=== PATIENT | female | born 2000 | race Hispanic/Latino ===

== ENCOUNTER 2020-05-21 16:57 | Inpatient (IN) | payer MEDICAID ==
[~2020-05-21] VITALS: Ht 157.5 cm; Wt 101.6 kg
[2020-05-21] MEDS ORDERED: LACTATED RINGERS 1000ML 1,000 ML IV PRN (17:42)
[2020-05-21] MEDS ORDERED: OXYTOCIN-LR 20 UNITS/1000 ML 1,000 ML IV SCH (17:45)
[2020-05-21 18:12] LABS: HEMATOCRIT 32.9 % (36-48); MEAN CORPUSCULAR HEMOGLOBIN 23.9 pg (27.0-33.0); MEAN CORPUSCULAR HGB CONC 31.6 g/dL (32.0-36.0); MEAN CORPUSCULAR VOLUME 75.5 fL (80-100); PLATELET COUNT (AUTO) 310 K/uL (130-400); RED BLOOD CELL COUNT(AUTO) 4.36 MIL/uL (4.00-5.50); WHITE BLOOD COUNT (AUTO) 11.8 K/uL (4.8-10.8)
[2020-05-21 18:18] LABS: APPEARANCE,URINE Clear (CLEAR); BILIRUBIN,URINE Negative (NEGATIVE); COLOR,URINE Yellow (YELLOW); GLUCOSE, URINE (UA) Negative (NEGATIVE); KETONES,URINE Negative (NEGATIVE); LEUKOCYTE ESTERASE ,URINE Trace (NEGATIVE); NITRATE,URINE Negative (NEGATIVE); OCCULT BLOOD,URINE Negative (NEGATIVE); PROTEIN,URINE Negative (NEGATIVE)
[2020-05-21 18:26] LABS: CREATININE 0.6 mg/dL (0.5-1.5); POTASSIUM 3.7 mmol/L (3.5-5.1)
[2020-05-21 18:27] LABS: INR 0.87 (0.85-1.15); PARTIAL THROMBOPLASTIN TIME 25.6 SEC (26.3-35.5); PROTHROMBIN TIME 9.4 SEC (9.6-11.6)
[2020-05-21 18:31] LABS: ALBUMIN 2.5 g/dL (3.5-5.0); BILIRUBIN,TOTAL 0.2 mg/dL (0.2-1.0); TOTAL PROTEIN, SERUM 7.2 g/dL (6.0-8.3); URIC ACID 3.8 mg/dL (2.6-7.2)
[2020-05-21 18:37] LABS: BACTERIA,URINE Moderate /HPF (None Seen); RBC,URINE 0-1 /HPF (0-1)
[2020-05-21 18:38] LABS: SQUAMOUS EPITHELIAL CELL,UR Few /HPF (0-2); TRANSITIONAL EPI CELLS,URINE Rare /HPF (None Seen)
[2020-05-21] MEDS ORDERED: DINOPROSTONE 10 MG VAGINAL SUPP VG SCH (19:00)
[2020-05-21 19:45] VITALS: BP 134/88
[2020-05-22] MEDS ORDERED: OXYTOCIN 10 USP UNITS/ML 20 UNIT in LACTATED RINGERS 1000ML 1,000 ML IV SCH (07:30)
[2020-05-22] MEDS ORDERED: CEFAZOLIN SODIUM 1 GM VIAL IVP PRN (08:30)
[2020-05-22] MEDS ORDERED: OXYTOCIN-LR 20 UNITS/1000 ML 1,000 ML IV SCH (08:30)
[2020-05-22] MEDS ORDERED: CALDOLOR 800MG+NS 250ML 250 ML IV PRN (08:30)
[2020-05-22] MEDS ORDERED: DEXAMETHASONE SOD PHOSPHATE 10MG/ML 1ML VIAL ONE (12:00)
[2020-05-22] MEDS ORDERED: ONDANSETRON HCL 4 MG/2 ML VIAL ONE (12:00)
[2020-05-22] MEDS ORDERED: EPHEDRINE SULFATE 50 MG/ML AMPULE ONE (12:00)
[2020-05-22] MEDS ORDERED: DURAMORPH PF1 MG/ML 10ML AMP IV ONE (12:00)
[2020-05-22] MEDS ORDERED: PHENYLEPHRINE HCL 10 MG/ML 1ML VIAL IV ONE (12:12)
[2020-05-22] MEDS ORDERED: PREN-196 PO (14:27)
[2020-05-22 14:30] VITALS: BP 127/68
[2020-05-22] MEDS ORDERED: CEFAZOLIN SODIUM 1 GM VIAL IVP SCH (14:30)
[2020-05-22] MEDS ORDERED: ONDANSETRON HCL 4 MG/2 ML VIAL IVP PRN (14:45)
[2020-05-22] MEDS ORDERED: DiphenhydrAMINE HCL 50 MG/ML VIAL IVP PRN (14:45)
[2020-05-22] MEDS ORDERED: NALOXONE HCL 0.4 MG/1 ML ML IVP PRN ×3 (14:45)
[2020-05-22] MEDS ORDERED: MEPERIDINE-PF 75 MG/ML SYG IM PRN (16:00)
[2020-05-22] MEDS ORDERED: DEXTROSE 5 %-0.45 % NACL 1,000 ML IV PRN (16:00)
[2020-05-22] MEDS ORDERED: SODIUM CHLORIDE 0.9% 10 ML VIAL IVP PRN (16:00)
[2020-05-22] MEDS ORDERED: PROMETHAZINE HCL 25 MG/ML 1ML AMPULE IM PRN (16:00)
[2020-05-22 16:22] VITALS: BP 150/83
[2020-05-22 19:32] VITALS: BP 153/66
--- NOTE | 2020-05-22 20:30 | NUR ---
activity assisted to side of bed, tolerated well, dangled without any problems, tolerating fluids well Addendum: 05/23/20 at 0524 by EVANS MERRITT LVN Amended: Links added.
[2020-05-22] MEDS: CEFAZOLIN SODIUM 1 GM VIAL IVP SCH (20:51)
[2020-05-22] MEDS ORDERED: HYDROCODONE/ACETAMINOPHEN 5/325 MG TAB PO PRN ×2 (21:00→21:30)
[2020-05-22] MEDS ORDERED: LORATADINE 10 MG TABLET PO PRN (21:30)
[2020-05-22] MEDS: DEXTROSE 5 %-0.45 % NACL 1,000 ML IV SCH (23:09)
[2020-05-22 23:26] VITALS: BP 116/58
--- NOTE | 2020-05-23 03:16 | NUR ---
STATUS/ FULL ASSESSMENT DONE AT 2014 ON 05/22/2020 Addendum: 05/23/20 at 0319 by EVANS MERRITT LVN Amended: Links added.
[2020-05-23 03:33] VITALS: BP 128/62
[2020-05-23] MEDS: CEFAZOLIN SODIUM 1 GM VIAL IVP SCH (04:22)
[2020-05-23] MEDS: DEXTROSE 5 %-0.45 % NACL 1,000 ML IV SCH (05:49)
--- NOTE | 2020-05-23 05:55 | NUR ---
DILLON CATHETER F/C REMOVED , CATHETER INTACT, TOLERATED WELL, INSTRUCTED TO CALL NURSE FOR ASSISTANCE WHEN SHE HAS URGE TO VOID Addendum: 05/23/20 at 0611 by EVANS MERRITT LVN Amended: Links added.
[2020-05-23 07:04] LABS: HEMATOCRIT 27.3 % (36-48); MEAN CORPUSCULAR HEMOGLOBIN 23.5 pg (27.0-33.0); MEAN CORPUSCULAR HGB CONC 30.8 g/dL (32.0-36.0); MEAN CORPUSCULAR VOLUME 76.5 fL (80-100); RED BLOOD CELL COUNT(AUTO) 3.57 MIL/uL (4.00-5.50); RED CELL DISTRIBUTION WIDTH 15.3 % (11.0-15.5); WHITE BLOOD COUNT (AUTO) 12.8 K/uL (4.8-10.8)
[2020-05-23 07:17] LABS: HEPATITIS Bs ANTIGEN SCREEN P Negative (Negative)
[2020-05-23 07:37] VITALS: BP 126/60
[2020-05-23] MEDS ORDERED: ACETAMINOPHEN EXTRA STRENGTH 500 MG TABLET PO PRN (08:45)
[2020-05-23] MEDS ORDERED: IBUPROFEN 600 MG TABLET PO PRN (08:45)
[2020-05-23] MEDS ORDERED: BISACODYL 10 MG SUPP.RECT RC PRN (08:45)
[2020-05-23] MEDS ORDERED: ACETAMINOPHEN-CODEINE 300/30MG TAB PO PRN (08:45)
[2020-05-23] MEDS ORDERED: SIMETHICONE 80 MG TAB.CHEW PO PRN (08:45)
[2020-05-23] MEDS ORDERED: LORATADINE 10 MG TABLET PO SCH (09:00)
[2020-05-23] MEDS ORDERED: DOCUSATE SODIUM 100 MG CAP PO SCH (09:00)
[2020-05-23 11:57] VITALS: BP 117/54
--- NOTE | 2020-05-23 15:40 | NUR ---
PATIENT LEFT UNIT VIA WHEELCHAIR WITH BELONGINGS IN ARMS. PERSONAL VEHICLE USED FOR TRANSPORTATION ACCOMPANIED BY . BABY SECURE IN CARSEAT. NO COMPLAINTS OR CONCERNS ADDRESSED FROM PATIENT ON DISCHARGE.
== END 2020-05-23 15:40 | disposition home or self-care (01) | DRG 540 ==
LOC: LDH 16:57 → WSH 05-22 15:39
PROVIDERS: ADMIT Obstetrics & Gynecology; ATTEND Obstetrics & Gynecology
PROC: 10D00Z1 Extraction of Products of Conception, Low, Open Approach (ICD-10-PCS; principal; 2020-05-22 12:00)
DX: O14.04 Mild to moderate pre-eclampsia, complicating childbirth (principal); O61.9 Failed induction of labor, unspecified; O99.214 Obesity complicating childbirth; Z3A.38 38 weeks gestation of pregnancy; Z37.0 Single live birth; E66.01 Morbid (severe) obesity due to excess calories; O69.1XX0 Labor and delivery complicated by cord around neck, with compression, not applicable or unspecified
CPT/HCPCS: 36415; 59510; 80053; 81001; 84550; 85027; 85384; 85610; 85730; 86592; 86701; 86850; 86900; 86901; 87088; 87340; 87390; A4344; G0378; J0690; J1100; J1741; J2274; J2370; J2405; J2590; J3490; J7120